=== PATIENT | male | born 1950 | race Caucasian/White ===

== ENCOUNTER 2016-09-09 10:44 | Day surgery (SDC) | payer BC ==
[2016-09-07 15:22] LABS: BASOPHILS 0.6 %; BASOPHILS ABSOLUTE 0.04 10/3/uL (0.0-0.16); EOSINOPHILS 6.9 %; EOSINOPHILS ABSOLUTE 0.46 10/3/uL (0.0-0.53); HEMATOCRIT 40.1 % (40.0-51.0); IMMATURE GRANULOCYTES 0.3 %; IMMATURE GRANULOCYTES ABSOLUTE 0.02 10/3/uL (0.0-0.11); LYMPHOCYTES ABSOLUTE 3.28 10/3/uL (0.67-4.30); MEAN CORPUS HGB CONC 34.9 g/dL (32.0-36.0); MEAN CORPUSCULAR HEMOGLOB 32.6 pg (26.0-34.0); MEAN PLATELET VOLUME 10.1 fL (9.2-13.0); MONOCYTES 8.5 %; MONOCYTES ABSOLUTE 0.57 10/3/uL (0.21-1.20); NEUTROPHILS 34.7 %; NEUTROPHILS ABSOLUTE 2.32 10/3/uL (2.02-8.40); PLATELET COUNT 150 10/3/uL (150-400); RBC DISTRIBUTION WIDTH 13.7 % (12.0-16.0); WHITE BLOOD CELLS 6.7 10/3/uL (4.5-10.5)
[2016-09-07 15:24] LABS: MANUAL DIFF NO %; MEAN CORPUSCULAR VOLUME 93.3 fL (80-100)
[2016-09-07 15:33] LABS: CHLORIDE, SERUM 109 MMOL/L (96-112); CO2 (CARBON DIOXIDE) 29 MMOL/L (24-34); CREATININE 0.57 MG/DL (0.70-1.30); GFR AFRICAN AMERICAN 124 ML/MIN (>=60); GFR NON AFRICAN AMERICAN 107 ML/MIN (>=60); POTASSIUM, SERUM 4.4 MMOL/L (3.5-5.3); SODIUM, SERUM 145 MMOL/L (135-148)
[2016-09-07 15:34] LABS: BUN (BLOOD UREA NITROGEN) 10 MG/DL (6-23); CALCIUM, SERUM 9.3 MG/DL (8.5-10.4); GLUCOSE, SERUM 83 MG/DL (60-99)
[2016-09-07 16:57] LABS: ASCORBIC ACID (UR NOT ORDER) 40 (NEG); BILIRUBIN, URINE NEGATIVE (NEG); KETONE, URINE NEGATIVE (NEG); LEUKOCYTE ESTERASE(NOT OR SMALL (NEG); WBC (NOT ORDERED) (RFLEX) 35 (0-5)
--- NOTE | ~2016-09-09 | OP ---
Record Of Operation [facility] [address] [place]. [address] NAME: ROLAND SOTO : 50 STATUS : REG [facility]#: [id number] AGE: 66 ADM/REG DATE : 09/09/16 MR#: [id number] REPORT SERV DATE: 09/09/16 DICTATED BY: BERONICA OLIVAS DATE: 09/09/16 REPORT STATUS : Draft TRANSCRIBED BY: MODL DATE: 09/09/16 DATE OF PROCEDURE: 09/09/2016 PREOPERATIVE DIAGNOSIS: Left ureteral stone (6 mm). POSTOPERATIVE DIAGNOSIS: Left ureteral stone (6 mm). PROCEDURE PERFORMED: Left extracorporeal shock wave lithotripsy, ureteral stone, initial treatment. SURGEON: Beronica Olivas M.D. ANESTHESIA: MAC. COMPLICATIONS: None. DRAINS: None. INDICATION: Mr. Soto is a 66-year-old with symptomatic 6-7 mm left upper ureteral stone. TECHNIQUE: Informed consent was obtained, received Ancef preoperatively. He was brought to the operating room. The left upper ureteral stone was identified with biplanar fluoroscopy, symptomatic the level of L3. Monitored anesthesia care was administered with propofol. Total of 2500 shocks were delivered to the stone at maximum power level of 4 using the Dornier shock wave lithotripter. Shocks were administered at 90 shocks per minute. There appeared to be good fragmentation of the stone. He will follow up in two weeks with a KUB to assess for fragment passage. MICHAEL/SONI Beronica Olivas M.D. / [id number] CC: Beronica Olivas M.D.
[~2016-09-09 10:44] MED LIST: B COMPLETE PO; BACDS PO; BETIMOL0.25 % OPH; BETIMOL0.5 % OPH; BUPROBAN150 MG PO; CARDCD240 PO; DILT-XR240 MG PO; FLOMAX4 PO; LIPITOR20 PO; LIPITOR40 PO; METPAKSF PO; NOR10 PO; PRILO PO; TIMOLOL MAL0.5 % OPH; ULTRAM50 PO; UROXATRAL PO; V5 PO; VITAMIN B-12 OTC PO; VITAMIN D OTC PO; VITAMIN D31000 UNIT PO; XALAT OPH
== END 2016-09-09 15:51 | disposition home or self-care (01) ==
LOC: SDC 10:44
PROVIDERS: Urology
PROC: 0TC73ZZ Extirpation of Matter from Left Ureter, Percutaneous Approach (ICD-10-PCS; principal; 2016-09-09 13:00)
DX: N20.1 Calculus of ureter (principal); E78.5 Hyperlipidemia, unspecified; I10 Essential (primary) hypertension; K21.9 Gastro-esophageal reflux disease without esophagitis; G47.33 Obstructive sleep apnea (adult) (pediatric); Z88.8 Allergy status to other drugs, medicaments and biological substances; Z79.899 Other long term (current) drug therapy; Z87.891 Personal history of nicotine dependence; Z90.49 Acquired absence of other specified parts of digestive tract; Z98.890 Other specified postprocedural states
CPT/HCPCS: 50590; 74000; 80048; 81001; 85025; 87086; 93005; J0690; J2250; J3010